=== PATIENT | male | born 1990 | race Caucasian/White ===

== ENCOUNTER 2017-01-05 18:21 | Emergency (ER) | payer BC ==
[2017-01-05] MEDS ORDERED: NS 0.9% 1000 ML* 2,000 ML IV ONE (18:35)
[2017-01-05 18:56] LABS: Hematocrit 42 % (42-52); Hemoglobin 14.5 g/dl (14.0-18.0); Mean Corpuscular HGB Conc 35 g/dl (31-36); Mean Corpuscular Hemoglobin 30 pg (27-31); Mean Corpuscular Volume 88 fL (80-94); Mean Platelet Volume 8 um3 (7.4-10.4); Red Blood Count 4.79 10^6/ul (4.0-5.4); Red Cell Distribution Width 13 % (10.5-15); White Blood Count 10.6 10^3/ul (3.5-10.8)
[2017-01-05 19:19] LABS: Albumin 4.6 g/dL (3.2-5.2); BUN/Creatinine Ratio 17.2 (8-20); Calcium 9.3 mg/dL (8.6-10.3); EGFR African American 93.1 (>60); EGFR Non-African American 72.4 (>60); Globulin 2.6 g/dL (2-4); Potassium 3.9 mmol/L (3.5-5.0); Total Bilirubin 0.8 mg/dL (0.2-1.0); Total Protein 7.2 g/dL (6.4-8.9)
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
[2017-01-05] MEDS ORDERED: oxyCODONE/Acetamin 5/325 MG* TAB PO ONE ×2 (20:07→22:15)
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
[2017-01-05] MEDS ORDERED: Morphine INJ* 4 MG/ML 1 ML SYRINGE IV ONE (20:58)
[2017-01-05] MEDS ORDERED: Ondansetron INJ* 2 MG/ML VIAL IV ONE (20:58)
[2017-01-05] MEDS ORDERED: Morphine INJ* 4 MG/ML 1 ML SYRINGE ONE (21:01)
--- NOTE | 2017-01-05 21:14 | RAD ---
Indication: Pain post fall. Comparison: No relevant prior exams available on the [facility] [place] [place]. Technique: AP and lateral views LEFT forearm REPORT AND IMPRESSION: Negative for fracture or articular malalignment. Mild dorsal soft tissue swelling.
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
[2017-01-05 22:24] LABS: Urine Bilirubin Negative (Negative); Urine Glucose Negative (Negative); Urine Nitrite Negative (Negative)
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
[2017-01-05 22:37] VITALS: BP 119/67
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
== END 2017-01-05 22:43 | disposition home or self-care (01) ==
LOC: ED 18:21
DX: S05.12XA Contusion of eyeball and orbital tissues, left eye, initial encounter (principal); S69.90XA Unspecified injury of unspecified wrist, hand and finger(s), initial encounter; S49.90XA Unspecified injury of shoulder and upper arm, unspecified arm, initial encounter; H53.8 Other visual disturbances; T14.8 Other injury of unspecified body region; V29.9XXA Motorcycle rider (driver) (passenger) injured in unspecified traffic accident, initial encounter; Y93.9 Activity, unspecified; Y92.9 Unspecified place or not applicable; Y99.9 Unspecified external cause status; R51 Headache
CPT/HCPCS: 36415; 70450; 70486; 71010; 72125; 80053; 81003; 83690; 85025; 85610; 85730; 86850; 86900; 86901; 96374; 96375; 99284; A9270-GY; J2270; J2405